=== PATIENT | female | born 1995 | race Caucasian/White ===

== ENCOUNTER → 2017-10-11 | Outpatient (CLI) | payer OTHER ==
[~2017-10-11] MED LIST: ALBU8.5H IH; ALBU8.5H11; AMIT-104 PO; AMIT-108 PO; BCP PO; BISMUTH SUBSALICYLATE CHEW; CETI10CA8 PO; CLA500 PO; DESO1TAB17 PO; DESO1TAB68 PO; DEXL30CA5 PO; DUL100/5PT INH; DULERAPT INH; FEXO-67 PO; FLU60SYR30 IM ONLY; FLUT12HF2 IH; LEVO1TAB48 PO; LOR5/325 PO; METRO500PT PO; MOME8.8H2 INH; MONT10TA PO; SINGULAR PO
== END ==
LOC: LAB 11:35
PROVIDERS: ATTEND Obstetrics & Gynecology
DX: R10.2 Pelvic and perineal pain (principal)
CPT/HCPCS: 87210

== ENCOUNTER → 2017-10-13 | Outpatient (CLI) | payer OTHER ==
--- NOTE | 2017-10-13 14:20 | RADIOLOGY IMAGING REPORT ---
F[facility] PATIENT NAME: Yuki Vincent : 1995 MR: [id number] V: [id number] EXAM DATE: ORDERING PHYSICIAN: NIK ORTIZ TECHNOLOGIST: Location: [facility] Patient: Yuki Vincent : 1995 Visit/Account:[id number] Date of Sevice: 10/13/2017 PELVIC HISTORY: Pelvic pain TECHNIQUE: Transabdominal and transvaginal ultrasound pelvis. COMPARISON: August 06, 2016 FINDINGS: Uterus: ; 8.2 cm length x 3.3 cm AP x 4.5 cm transverse. Myometrium: Unremarkable. Endometrium: Unremarkable; double thickness 2.6 mm. Cervix: Grossly negative. Ovaries: Right - 1.4 x 1.7 x 1.2 cm Left - 1.5 x 1.4 x 0.9 cm. The ovaries were not ideally seen due to adjacent bowel Blood flow is documented in each ovary by duplex Doppler ultrasound. Adnexa: Grossly unremarkable. Free pelvic fluid: None. IMPRESSION: Unremarkable pelvic ultrasound Report Dictated By: Yessica Elliott MD at 10/13/2017 2:02 PM Report E-Signed By: Yessica Elliott MD at 10/13/2017 2:16 PM WSN:[id number]
== END ==
LOC: RAD 10:26
PROVIDERS: ATTEND Obstetrics & Gynecology
DX: Z02.9 Encounter for administrative examinations, unspecified (principal)
CPT/HCPCS: 76856

== ENCOUNTER → 2018-06-12 | Outpatient (CLI) | payer OTHER ==
[~2018-06-12] MED LIST changes: +AMOX-559 PO; +FLU60VIA41 IM; +LEU3.75I IM ONLY; +LEUP11.25I IM ONLY; +NORE5TAB8 PO
== END ==
LOC: US 01:48
PROVIDERS: ATTEND Nurse Practitioner Primary Care
DX: Z82.79 Family history of other congenital malformations, deformations and chromosomal abnormalities (principal)
CPT/HCPCS: 93306